=== PATIENT | male | born 1995 ===

== ENCOUNTER → 2020-10-27 | Outpatient (CLI) | payer OTHER ==
--- NOTE | 2020-10-27 14:21 | Diagnostic Imaging Report ---
INDICATION: Right localized swelling mass lump finger pain. TECHNIQUE: PA and lateral views of the hand along with PA and oblique views of the right middle finger. CORRELATION STUDY: None. FINDINGS: There is an obliquely oriented fracture through the proximal mid shaft of the 4th metacarpal. There is dorsal displacement of the main distal fracture fragment by approximately the width of the cortex. Alignment also appears to be slightly retracted but otherwise maintained. At the proximal interphalangeal joint of the ring finger, there is a bony defect, suspect for an avulsion type fracture, likely off the proximal base of the middle phalanx along its volar aspect. Associated soft tissue edema. IMPRESSION: 1. Obliquely oriented, mildly displaced fracture involving the 4th metacarpal. 2. Findings suggest a probable avulsion fracture at the proximal interphalangeal joint middle finger with associated edema. Dictated by: Dictated on workstation # [id number]
== END ==
LOC: RAD FS 11:16
PROVIDERS: ATTEND Nurse Practitioner
DX: S62.304A Unspecified fracture of fourth metacarpal bone, right hand, initial encounter for closed fracture (principal); X58.XXXA Exposure to other specified factors, initial encounter
CPT/HCPCS: 73140

== ENCOUNTER → 2020-11-05 | Outpatient (CLI) | payer OTHER ==
--- NOTE | 2020-11-05 11:59 | Diagnostic Imaging Report ---
INDICATION: Fracture follow-up. COMPARISON: Imaging from the same date as well as from 10/27/2020 TECHNIQUE: 3 radiographs are obtained centered upon the 3rd and 4th digits with a single frontal radiograph of the right hand also obtained. FINDINGS: Obliquely oriented fracture extending through the proximal to mid shaft of the 4th metacarpal is again identified. Mild overriding with resultant foreshortening of the 4th metacarpal is identified, slightly worsened since the prior examination. Mild posterior displacement is also slightly worsened since the prior examination. No significant periosteal reaction identified. Previously noted avulsion fracture involving the volar base of the 3rd digit middle phalanx is again identified. This fracture is slightly distracted, though appearing unchanged positioning since the prior examination. No significant periosteal reaction. Soft tissue swelling of the 3rd digit is again seen. No new fracture or dislocation. No suspicious radiopaque foreign body. IMPRESSION: 4th metacarpal shaft fracture is again identified with slightly worsening overriding and posterior displacement. No significant healing identified at this time. Unchanged avulsion fracture involving the volar base of the 3rd digit middle phalanx remaining in stable alignment without significant healing. No new acute osseous abnormality. Dictated by: Dictated on workstation # [id number]
--- NOTE | 2020-11-05 12:04 | Diagnostic Imaging Report ---
INDICATION: Fracture follow-up. COMPARISON: Imaging from the same date and from 10/27/2020 TECHNIQUE: 3 radiographs of the right hand dated 11/05/2020 FINDINGS: Obliquely oriented fracture through the proximal to mid shaft of the 4th metacarpal are identified with slightly worsened overriding and posterior displacement. There is resulting foreshortening of the 4th metacarpal. No significant healing seen at this time. Slightly distracted avulsion fracture arising from the volar base of the 3rd digit middle phalanx is again identified, in stable alignment. No significant periosteal reaction. No new fracture or dislocation. No destructive osseous process. No suspicious radiopaque foreign body. Soft tissue swelling of the 3rd digit is again seen. IMPRESSION: Slightly worsened overriding and posterior displacement of previously noted 4th metacarpal shaft fracture without significant healing. Stable slightly distracted avulsion fracture arising from the volar base of the 3rd digit middle phalanx without significant healing at this time. No new acute osseous abnormality. Dictated by: Dictated on workstation # [id number]
== END ==
LOC: RAD FS 09:25
PROVIDERS: ATTEND Nurse Practitioner
DX: S62.622D Displaced fracture of middle phalanx of right middle finger, subsequent encounter for fracture with routine healing (principal); S62.324D Displaced fracture of shaft of fourth metacarpal bone, right hand, subsequent encounter for fracture with routine healing; X58.XXXD Exposure to other specified factors, subsequent encounter
CPT/HCPCS: 73130; 73140

== ENCOUNTER → 2020-11-19 | Outpatient (CLI) | payer OTHER ==
--- NOTE | 2020-11-19 10:19 | Diagnostic Imaging Report ---
INDICATION: Follow-up fracture EXAMINATION: Right hand from 11/19/2020 COMPARISON: 11/05/2020 FINDINGS: 4 views of the hand redemonstrate a comminuted fracture of the tuft of the distal 4th phalanx. The fracture is in good anatomic alignment without significant interval change. There is an additional fracture along the volar plate of the 3rd middle phalanx which is also unchanged. No significant interval callus formation is appreciated. The joint spaces appear preserved. An oblique fracture through the mid aspect of the 4th metacarpal demonstrates no significant interval change in alignment. No surrounding callus formation is appreciated. Remaining hand is intact. IMPRESSION: 1. Stable oblique fracture of the 4th metacarpal without changes of callus formation. 2. Stable volar plate fracture of the 3rd middle phalanx. 3. Stable appearing tuft fracture involving the distal 4th phalanx. Dictated by: Dictated on workstation # [id number]
== END ==
LOC: RAD FS 09:00
PROVIDERS: ATTEND Nurse Practitioner
DX: S62.622D Displaced fracture of middle phalanx of right middle finger, subsequent encounter for fracture with routine healing (principal); S62.324D Displaced fracture of shaft of fourth metacarpal bone, right hand, subsequent encounter for fracture with routine healing; X58.XXXD Exposure to other specified factors, subsequent encounter
CPT/HCPCS: 73130